=== PATIENT | female | born 1975 | race Caucasian/White ===

== ENCOUNTER → 2021-05-07 | Outpatient (CLI) | payer OTHER ==
[~2021-05-07] MED LIST: GLUCOPHAGE500 MG PO; IBUPROFEN400 MG PO; PROTONIX40 MG PO; TYLENOL 500 MG500 MG PO
== END ==
LOC: KOH-I 12:50
DX: G43.909 Migraine, unspecified, not intractable, without status migrainosus (principal)
CPT/HCPCS: 70450

== ENCOUNTER → 2021-06-02 | Outpatient (CLI) | payer OTHER | LOC: KOH-I 10:26 | DX: R10.11 Right upper quadrant pain (principal); K76.0 Fatty (change of) liver, not elsewhere classified | CPT/HCPCS: 76705 ==

== ENCOUNTER → 2022-02-03 | Outpatient (CLI) | payer OTHER | LOC: HEART 5 13:30 | DX: R00.2 Palpitations (principal) | CPT/HCPCS: 93306 ==

== ENCOUNTER → 2022-04-16 | Outpatient (CLI) | payer OTHER | LOC: HEART 5 13:38 | DX: R06.02 Shortness of breath (principal) | CPT/HCPCS: 94060; 94729 ==